=== PATIENT | female | born 1940 | race American Indian/Alaskan Native ===

== ENCOUNTER 2016-03-15 07:45 | Outpatient (CLI) | payer OTHER ==
[2016-03-15] MEDS ORDERED: XYLOCAINE TOPICAL 2% ONE (07:59)
[2016-03-15] MEDS ORDERED: XYLOCAINE TOPICAL 2% TP ONE (11:57)
== END 2016-03-15 07:46 | disposition home or self-care (01) ==
LOC: WOUND 07:45
PROVIDERS: ATTEND Internal Medicine
DX: I87.311 Chronic venous hypertension (idiopathic) with ulcer of right lower extremity (principal); E11.621 Type 2 diabetes mellitus with foot ulcer; L97.323 Non-pressure chronic ulcer of left ankle with necrosis of muscle; L97.322 Non-pressure chronic ulcer of left ankle with fat layer exposed; L97.812 Non-pressure chronic ulcer of other part of right lower leg with fat layer exposed; E78.2 Mixed hyperlipidemia; E11.40 Type 2 diabetes mellitus with diabetic neuropathy, unspecified; Z87.891 Personal history of nicotine dependence
CPT/HCPCS: 29580

== ENCOUNTER 2016-03-22 07:44 | Outpatient (CLI) | payer OTHER ==
[2016-03-22] MEDS ORDERED: XYLOCAINE TOPICAL 2% TP ONE (08:08)
== END 2016-03-22 07:45 | disposition home or self-care (01) ==
LOC: WOUND 07:44
PROVIDERS: ATTEND Podiatrist
DX: I87.311 Chronic venous hypertension (idiopathic) with ulcer of right lower extremity (principal); E11.622 Type 2 diabetes mellitus with other skin ulcer; L97.323 Non-pressure chronic ulcer of left ankle with necrosis of muscle; L97.322 Non-pressure chronic ulcer of left ankle with fat layer exposed; E11.40 Type 2 diabetes mellitus with diabetic neuropathy, unspecified; E78.5 Hyperlipidemia, unspecified; Z87.891 Personal history of nicotine dependence
CPT/HCPCS: 29581

== ENCOUNTER 2016-03-22 09:21 | Outpatient (CLI) | payer MEDICARE ==
--- NOTE | 2016-03-22 10:38 | XRay Report ---
LEFT FOOT RADIOGRAPHS INDICATION: Osteo tarsal. COMPARISON: None similar at this institution. FINDINGS: AP, lateral and oblique left foot attempted radiographs demonstrate diffuse soft tissue swelling and extensive disruption of the hindfoot/ankle articulation with partial bony resorption, including the talus that appears displaced/dislocated medially with disrupted talonavicular articulation as well. Osteoporosis. Remainder forefoot and midfoot bones appear intact with few degenerative changes. CONCLUSION: Left Charcot foot with extensive disruption of the hindfoot, including the ankle and talonavicular articulations, as detailed above. Thank you for the opportunity to participate in this patient's care.
--- NOTE | 2016-03-22 11:21 | XRay Report ---
LEFT ANKLE RADIOGRAPHS: INDICATION: Osteo tarsal. COMPARISON: None similar. FINDINGS: AP, lateral and oblique attempted left ankle radiographs demonstrate extensive hindfoot radiographic abnormality with partial bony resorption/possible collapse or subluxation of the talus and may involve the subtalar joints and the distal calcaneus. Talotibial articulation though appears preserved medially, to the extent visualized. Degenerative changes medially at the ankle noted. Chronic distal fibular deformity/widening suspected. Extensive diffuse soft tissue swelling along the imaged lower leg, ankle and included foot also noted. Few atherosclerotic vascular calcifications. Foot bony demineralization may be present. Mild dorsal midfoot spurring also possible. Approximately 1.3 cm possible calcification or dorsal calcaneal spur. CONCLUSION: Left Charcot foot with extensive chronic hindfoot disruption with degenerative changes noted, as detailed above. Thank you for the opportunity to participate in this patient's care.
== END 2016-03-22 09:22 | disposition home or self-care (01) ==
LOC: XRAY 09:21
PROVIDERS: ATTEND Orthopaedic Surgery
DX: E11.9 Type 2 diabetes mellitus without complications (principal); A52.16 Charcot's arthropathy (tabetic); M81.0 Age-related osteoporosis without current pathological fracture; M79.89 Other specified soft tissue disorders; S93.602A Unspecified sprain of left foot, initial encounter; X58.XXXA Exposure to other specified factors, initial encounter; Y93.89 Activity, other specified; Y92.89 Other specified places as the place of occurrence of the external cause; Y99.8 Other external cause status

== ENCOUNTER 2016-03-26 09:22 | Outpatient (CLI) | payer MEDICARE | END 2016-03-26 09:23 | disposition home or self-care (01) | LOC: WOUND 09:22 | PROVIDERS: ATTEND Podiatrist | DX: E11.622 Type 2 diabetes mellitus with other skin ulcer (principal); L97.323 Non-pressure chronic ulcer of left ankle with necrosis of muscle; E11.40 Type 2 diabetes mellitus with diabetic neuropathy, unspecified; I10 Essential (primary) hypertension; E78.5 Hyperlipidemia, unspecified; Z87.891 Personal history of nicotine dependence | CPT/HCPCS: 99213; G0463 ==

== ENCOUNTER 2016-04-05 07:52 | Outpatient (CLI) | payer MEDICARE ==
[2016-04-05] MEDS ORDERED: XYLOCAINE TOPICAL 2% TP ONE ×2 (08:15→13:37)
== END 2016-04-05 07:53 | disposition home or self-care (01) ==
LOC: WOUND 07:52
PROVIDERS: ATTEND Podiatrist
DX: E11.622 Type 2 diabetes mellitus with other skin ulcer (principal); I87.311 Chronic venous hypertension (idiopathic) with ulcer of right lower extremity; L97.323 Non-pressure chronic ulcer of left ankle with necrosis of muscle; L97.821 Non-pressure chronic ulcer of other part of left lower leg limited to breakdown of skin; L97.811 Non-pressure chronic ulcer of other part of right lower leg limited to breakdown of skin; E11.610 Type 2 diabetes mellitus with diabetic neuropathic arthropathy; E11.40 Type 2 diabetes mellitus with diabetic neuropathy, unspecified; R26.9 Unspecified abnormalities of gait and mobility; E78.5 Hyperlipidemia, unspecified; Z87.891 Personal history of nicotine dependence; Z72.89 Other problems related to lifestyle

== ENCOUNTER 2016-04-12 08:24 | Outpatient (CLI) | payer MEDICARE ==
[2016-04-12] MEDS ORDERED: XYLOCAINE TOPICAL 4% TP ONE ×2 (08:35→10:59)
== END 2016-04-12 08:25 | disposition home or self-care (01) ==
LOC: WOUND 08:24
PROVIDERS: ATTEND Podiatrist
DX: I87.311 Chronic venous hypertension (idiopathic) with ulcer of right lower extremity (principal); E11.622 Type 2 diabetes mellitus with other skin ulcer; L97.322 Non-pressure chronic ulcer of left ankle with fat layer exposed; L97.323 Non-pressure chronic ulcer of left ankle with necrosis of muscle; E11.40 Type 2 diabetes mellitus with diabetic neuropathy, unspecified; E78.5 Hyperlipidemia, unspecified; E11.610 Type 2 diabetes mellitus with diabetic neuropathic arthropathy; Z87.891 Personal history of nicotine dependence

== ENCOUNTER 2016-04-26 08:08 | Outpatient (CLI) | payer MEDICARE ==
[2016-04-26] MEDS ORDERED: XYLOCAINE TOPICAL 4% TP ONE ×3 (08:09→16:07)
== END 2016-04-26 08:09 | disposition home or self-care (01) ==
LOC: WOUND 08:08
PROVIDERS: ATTEND Podiatrist
DX: I87.311 Chronic venous hypertension (idiopathic) with ulcer of right lower extremity (principal); L97.811 Non-pressure chronic ulcer of other part of right lower leg limited to breakdown of skin; E11.621 Type 2 diabetes mellitus with foot ulcer; L97.422 Non-pressure chronic ulcer of left heel and midfoot with fat layer exposed; E11.622 Type 2 diabetes mellitus with other skin ulcer; L97.322 Non-pressure chronic ulcer of left ankle with fat layer exposed; E11.40 Type 2 diabetes mellitus with diabetic neuropathy, unspecified; E78.5 Hyperlipidemia, unspecified; Z87.891 Personal history of nicotine dependence

== ENCOUNTER 2016-05-10 08:23 | Outpatient (CLI) | payer MEDICARE ==
[2016-05-10] MEDS ORDERED: XYLOCAINE TOPICAL 4% TP ONE ×2 (08:38→15:28)
== END 2016-05-10 08:24 | disposition home or self-care (01) ==
LOC: WOUND 08:23
PROVIDERS: ATTEND Podiatrist
DX: I87.311 Chronic venous hypertension (idiopathic) with ulcer of right lower extremity (principal); E11.621 Type 2 diabetes mellitus with foot ulcer; L97.422 Non-pressure chronic ulcer of left heel and midfoot with fat layer exposed; E11.622 Type 2 diabetes mellitus with other skin ulcer; L97.322 Non-pressure chronic ulcer of left ankle with fat layer exposed; E11.610 Type 2 diabetes mellitus with diabetic neuropathic arthropathy; I10 Essential (primary) hypertension; E11.40 Type 2 diabetes mellitus with diabetic neuropathy, unspecified; E78.5 Hyperlipidemia, unspecified; Z87.891 Personal history of nicotine dependence

== ENCOUNTER 2016-05-24 08:31 | Outpatient (CLI) | payer MEDICARE ==
[2016-05-24] MEDS ORDERED: XYLOCAINE TOPICAL 4% TP ONE (08:46)
== END 2016-05-24 08:32 | disposition home or self-care (01) ==
LOC: WOUND 08:31
PROVIDERS: ATTEND Podiatrist
DX: I87.311 Chronic venous hypertension (idiopathic) with ulcer of right lower extremity (principal); E11.621 Type 2 diabetes mellitus with foot ulcer; L97.422 Non-pressure chronic ulcer of left heel and midfoot with fat layer exposed; L97.322 Non-pressure chronic ulcer of left ankle with fat layer exposed; E11.40 Type 2 diabetes mellitus with diabetic neuropathy, unspecified; Q89.9 Congenital malformation, unspecified; E78.5 Hyperlipidemia, unspecified

== ENCOUNTER 2016-05-31 08:06 | Outpatient (CLI) | payer MEDICARE ==
[2016-05-31] MEDS ORDERED: XYLOCAINE TOPICAL 2% TP ONE ×2 (08:15→13:44)
== END 2016-05-31 08:07 | disposition home or self-care (01) ==
LOC: WOUND 08:06
PROVIDERS: ATTEND Podiatrist
DX: I87.311 Chronic venous hypertension (idiopathic) with ulcer of right lower extremity (principal); E11.621 Type 2 diabetes mellitus with foot ulcer; L97.322 Non-pressure chronic ulcer of left ankle with fat layer exposed; L97.422 Non-pressure chronic ulcer of left heel and midfoot with fat layer exposed; E11.40 Type 2 diabetes mellitus with diabetic neuropathy, unspecified; E11.610 Type 2 diabetes mellitus with diabetic neuropathic arthropathy; E78.5 Hyperlipidemia, unspecified; Z87.891 Personal history of nicotine dependence
CPT/HCPCS: 87075; 87076; 87116; 87186

== ENCOUNTER 2016-06-07 08:04 | Outpatient (CLI) | payer MEDICARE ==
[2016-06-07] MEDS ORDERED: XYLOCAINE TOPICAL 2% TP ONE ×2 (08:52→15:40)
== END 2016-06-07 08:05 | disposition home or self-care (01) ==
LOC: WOUND 08:04
PROVIDERS: ATTEND Podiatrist
DX: I87.311 Chronic venous hypertension (idiopathic) with ulcer of right lower extremity (principal); L97.811 Non-pressure chronic ulcer of other part of right lower leg limited to breakdown of skin; E11.621 Type 2 diabetes mellitus with foot ulcer; L97.322 Non-pressure chronic ulcer of left ankle with fat layer exposed; L97.422 Non-pressure chronic ulcer of left heel and midfoot with fat layer exposed; E11.40 Type 2 diabetes mellitus with diabetic neuropathy, unspecified; Q89.9 Congenital malformation, unspecified; E78.5 Hyperlipidemia, unspecified; Z87.891 Personal history of nicotine dependence

== ENCOUNTER 2016-06-14 07:46 | Outpatient (CLI) | payer MEDICARE ==
[2016-06-14] MEDS ORDERED: XYLOCAINE TOPICAL 4% TP ONE ×2 (08:12→13:41)
== END 2016-06-14 07:47 | disposition home or self-care (01) ==
LOC: WOUND 07:46
PROVIDERS: ATTEND Podiatrist
DX: I87.311 Chronic venous hypertension (idiopathic) with ulcer of right lower extremity (principal); L97.811 Non-pressure chronic ulcer of other part of right lower leg limited to breakdown of skin; E11.621 Type 2 diabetes mellitus with foot ulcer; L97.422 Non-pressure chronic ulcer of left heel and midfoot with fat layer exposed; E11.622 Type 2 diabetes mellitus with other skin ulcer; L97.322 Non-pressure chronic ulcer of left ankle with fat layer exposed; E11.40 Type 2 diabetes mellitus with diabetic neuropathy, unspecified; E11.610 Type 2 diabetes mellitus with diabetic neuropathic arthropathy; Q89.9 Congenital malformation, unspecified; E78.5 Hyperlipidemia, unspecified; Z87.891 Personal history of nicotine dependence

== ENCOUNTER 2016-06-21 07:56 | Outpatient (CLI) | payer MEDICARE ==
[2016-06-21] MEDS ORDERED: XYLOCAINE TOPICAL 4% TP ONE ×2 (08:12→09:00)
== END 2016-06-21 07:57 | disposition home or self-care (01) ==
LOC: WOUND 07:56
PROVIDERS: ATTEND Podiatrist
DX: E11.621 Type 2 diabetes mellitus with foot ulcer (principal); I87.311 Chronic venous hypertension (idiopathic) with ulcer of right lower extremity; L97.521 Non-pressure chronic ulcer of other part of left foot limited to breakdown of skin; E11.622 Type 2 diabetes mellitus with other skin ulcer; L97.322 Non-pressure chronic ulcer of left ankle with fat layer exposed; L97.422 Non-pressure chronic ulcer of left heel and midfoot with fat layer exposed; E11.40 Type 2 diabetes mellitus with diabetic neuropathy, unspecified; E78.5 Hyperlipidemia, unspecified; R26.9 Unspecified abnormalities of gait and mobility; E11.610 Type 2 diabetes mellitus with diabetic neuropathic arthropathy; Z87.891 Personal history of nicotine dependence; Z72.89 Other problems related to lifestyle

== ENCOUNTER 2016-06-28 08:10 | Outpatient (CLI) | payer MEDICARE ==
[2016-06-28] MEDS ORDERED: XYLOCAINE TOPICAL 4% TP ONE ×2 (08:19→08:44)
== END 2016-06-28 08:11 | disposition home or self-care (01) ==
LOC: WOUND 08:10
PROVIDERS: ATTEND Podiatrist
DX: E11.621 Type 2 diabetes mellitus with foot ulcer (principal); I87.311 Chronic venous hypertension (idiopathic) with ulcer of right lower extremity; L97.322 Non-pressure chronic ulcer of left ankle with fat layer exposed; L97.422 Non-pressure chronic ulcer of left heel and midfoot with fat layer exposed; E11.40 Type 2 diabetes mellitus with diabetic neuropathy, unspecified; E78.5 Hyperlipidemia, unspecified; Z87.891 Personal history of nicotine dependence

== ENCOUNTER 2016-07-05 08:12 | Outpatient (CLI) | payer MEDICARE ==
[2016-07-05] MEDS ORDERED: XYLOCAINE TOPICAL 4% TP ONE ×2 (08:17→10:00)
== END 2016-07-05 08:13 | disposition home or self-care (01) ==
LOC: WOUND 08:12
PROVIDERS: ATTEND Podiatrist
DX: E11.621 Type 2 diabetes mellitus with foot ulcer (principal); L97.521 Non-pressure chronic ulcer of other part of left foot limited to breakdown of skin; L97.421 Non-pressure chronic ulcer of left heel and midfoot limited to breakdown of skin; E11.622 Type 2 diabetes mellitus with other skin ulcer; I87.311 Chronic venous hypertension (idiopathic) with ulcer of right lower extremity; L97.811 Non-pressure chronic ulcer of other part of right lower leg limited to breakdown of skin; L97.321 Non-pressure chronic ulcer of left ankle limited to breakdown of skin; E11.40 Type 2 diabetes mellitus with diabetic neuropathy, unspecified; L03.116 Cellulitis of left lower limb; E78.5 Hyperlipidemia, unspecified; F15.90 Other stimulant use, unspecified, uncomplicated; Z87.891 Personal history of nicotine dependence; Z72.89 Other problems related to lifestyle

== ENCOUNTER 2016-07-19 07:53 | Outpatient (CLI) | payer MEDICARE ==
[2016-07-19] MEDS ORDERED: XYLOCAINE TOPICAL 4% TP ONE (08:43)
== END 2016-07-19 07:54 | disposition home or self-care (01) ==
LOC: WOUND 07:53
PROVIDERS: ATTEND Podiatrist
DX: I87.311 Chronic venous hypertension (idiopathic) with ulcer of right lower extremity (principal); E11.621 Type 2 diabetes mellitus with foot ulcer; L97.422 Non-pressure chronic ulcer of left heel and midfoot with fat layer exposed; L97.322 Non-pressure chronic ulcer of left ankle with fat layer exposed; E11.622 Type 2 diabetes mellitus with other skin ulcer; L97.811 Non-pressure chronic ulcer of other part of right lower leg limited to breakdown of skin; Q89.9 Congenital malformation, unspecified; E11.40 Type 2 diabetes mellitus with diabetic neuropathy, unspecified; E78.5 Hyperlipidemia, unspecified; Z87.891 Personal history of nicotine dependence

== ENCOUNTER 2016-07-26 07:57 | Outpatient (CLI) | payer MEDICARE ==
[2016-07-26] MEDS ORDERED: XYLOCAINE TOPICAL 4% TP ONE (08:10)
== END 2016-07-26 07:58 | disposition home or self-care (01) ==
LOC: WOUND 07:57
PROVIDERS: ATTEND Podiatrist
DX: I87.311 Chronic venous hypertension (idiopathic) with ulcer of right lower extremity (principal); E11.621 Type 2 diabetes mellitus with foot ulcer; L97.422 Non-pressure chronic ulcer of left heel and midfoot with fat layer exposed; L97.322 Non-pressure chronic ulcer of left ankle with fat layer exposed; E11.40 Type 2 diabetes mellitus with diabetic neuropathy, unspecified; Q89.9 Congenital malformation, unspecified; E78.5 Hyperlipidemia, unspecified; Z87.891 Personal history of nicotine dependence

== ENCOUNTER 2016-08-02 07:58 | Outpatient (CLI) | payer MEDICARE | END 2016-08-02 07:59 | disposition home or self-care (01) | LOC: WOUND 07:58 | PROVIDERS: ATTEND Podiatrist | DX: I87.311 Chronic venous hypertension (idiopathic) with ulcer of right lower extremity (principal); L97.811 Non-pressure chronic ulcer of other part of right lower leg limited to breakdown of skin; E11.621 Type 2 diabetes mellitus with foot ulcer; L97.422 Non-pressure chronic ulcer of left heel and midfoot with fat layer exposed; E11.622 Type 2 diabetes mellitus with other skin ulcer; L97.322 Non-pressure chronic ulcer of left ankle with fat layer exposed; E11.40 Type 2 diabetes mellitus with diabetic neuropathy, unspecified; E78.5 Hyperlipidemia, unspecified; Z87.891 Personal history of nicotine dependence | CPT/HCPCS: 99213; G0463 ==

== ENCOUNTER 2017-10-22 13:37 | Outpatient (CLI) | payer MEDICARE ==
[2017-10-22 14:06] LABS: Basophils # (Auto) 0.1 K/mm3 (0.0-0.1); Basophils % (Auto) 0.5 % (0.0-1.8); Eosinophils # (Auto) 0.5 K/mm3 (0.0-0.4); Eosinophils % (Auto) 3.6 % (0.0-4.3); Hematocrit 28.8 % (30.3-42.9); Hemoglobin 9.3 gm/dl (10.1-14.3); Lymphocytes # (Auto) 1.8 K/mm3 (1.2-5.4); Lymphocytes % (Auto) 12.4 % (13.4-35.0); Mean Corpuscular HGB Conc 32 % (30-34); Mean Corpuscular Volume 79 fl (79-97); Monocytes # (Auto) 0.7 K/mm3 (0.0-0.8); Monocytes % (Auto) 5.1 % (0.0-7.3); Platelet Count 311 K/mm3 (140-440); Red Blood Count 3.66 M/mm3 (3.65-5.03); Red Cell Distribution Width 13.5 % (13.2-15.2)
[2017-10-22 14:11] LABS: Mean Corpuscular Hemoglobin 26 pg (28-32)
[2017-10-22 14:27] LABS: Albumin 3.5 g/dL (3.9-5); Calcium 9.4 mg/dL (8.4-10.2)
== END 2017-10-22 13:38 | disposition home or self-care (01) ==
LOC: LAB 13:37
PROVIDERS: ATTEND Internal Medicine Nephrology
DX: N18.4 Chronic kidney disease, stage 4 (severe) (principal)
CPT/HCPCS: 36415; 80048; 82040; 84100; 85025

== ENCOUNTER 2018-02-04 12:19 | Outpatient (CLI) | payer MEDICARE ==
[2018-02-04 13:06] LABS: Calcium 9.5 mg/dL (8.4-10.2)
== END 2018-02-04 12:20 | disposition home or self-care (01) ==
LOC: LAB 12:19
PROVIDERS: ATTEND Surgery
DX: E11.621 Type 2 diabetes mellitus with foot ulcer (principal); L89.624 Pressure ulcer of left heel, stage 4; E11.40 Type 2 diabetes mellitus with diabetic neuropathy, unspecified; E11.622 Type 2 diabetes mellitus with other skin ulcer; E78.5 Hyperlipidemia, unspecified; L97.422 Non-pressure chronic ulcer of left heel and midfoot with fat layer exposed; I87.311 Chronic venous hypertension (idiopathic) with ulcer of right lower extremity
CPT/HCPCS: 36415; 80048; 83036

== ENCOUNTER 2018-03-12 11:11 | Outpatient (CLI) | payer MEDICARE ==
[2018-03-12] MEDS ORDERED: XYLOCAINE TOPICAL 4% TP ONE (11:28)
[2018-03-12] MEDS ORDERED: SILVER NITRATE TP ONE (11:36)
== END 2018-03-12 11:12 | disposition home or self-care (01) ==
LOC: WOUND 11:11
PROVIDERS: ATTEND Surgery
DX: E11.621 Type 2 diabetes mellitus with foot ulcer (principal); L97.422 Non-pressure chronic ulcer of left heel and midfoot with fat layer exposed; L89.612 Pressure ulcer of right heel, stage 2; L97.412 Non-pressure chronic ulcer of right heel and midfoot with fat layer exposed; E11.622 Type 2 diabetes mellitus with other skin ulcer; L97.322 Non-pressure chronic ulcer of left ankle with fat layer exposed; E11.40 Type 2 diabetes mellitus with diabetic neuropathy, unspecified; I87.2 Venous insufficiency (chronic) (peripheral); I10 Essential (primary) hypertension; E78.5 Hyperlipidemia, unspecified; Z87.891 Personal history of nicotine dependence

== ENCOUNTER 2018-04-01 12:42 | Outpatient (CLI) | payer MEDICARE ==
[2018-04-01] MEDS ORDERED: AD OINTMENT TP PRN (13:25)
[2018-04-01] MEDS ORDERED: SILVER NITRATE TP ONE (13:30)
== END 2018-04-01 12:43 | disposition home or self-care (01) ==
LOC: WOUND 12:42
PROVIDERS: ATTEND Surgery
DX: E11.621 Type 2 diabetes mellitus with foot ulcer (principal); L89.612 Pressure ulcer of right heel, stage 2; L97.412 Non-pressure chronic ulcer of right heel and midfoot with fat layer exposed; L89.624 Pressure ulcer of left heel, stage 4; L97.421 Non-pressure chronic ulcer of left heel and midfoot limited to breakdown of skin; E11.622 Type 2 diabetes mellitus with other skin ulcer; L97.322 Non-pressure chronic ulcer of left ankle with fat layer exposed; L97.312 Non-pressure chronic ulcer of right ankle with fat layer exposed; E11.40 Type 2 diabetes mellitus with diabetic neuropathy, unspecified; I87.2 Venous insufficiency (chronic) (peripheral); I10 Essential (primary) hypertension; E78.5 Hyperlipidemia, unspecified; Z87.891 Personal history of nicotine dependence
CPT/HCPCS: 97597; A6250